=== PATIENT | male | born 1970 | race Caucasian/White ===

== ENCOUNTER 2018-03-15 09:29 | Emergency (ER) | payer MEDICAID ==
[~2018-03-15] VITALS: Ht 177.8 cm; Wt 105.0 kg
--- NOTE | 2018-03-15 09:53 | NUR ---
PT. WAS ASKED TO PUT ON A GOWN TO BE EXAMINED. PT. IS REFUSING.
--- NOTE | 2018-03-15 10:20 | NUR ---
PT TO ROOM 14 W/ C/O DIFFUSE ABD PAIN THROUGHOUT AND C/O N/V/D STARTED 2 DAYS AGO. DENIES GI HX/SURGERIES. PT AWARE OF NEED FOR UA. STATES HE CANNOT PROVIDE SAMPLE AT THIS TIME. PT RESTING ON GURNEY. NADN. WARM BLANKET PROVIDED.
[2018-03-15] MEDS ORDERED: MORPHINE SULFATE 4 MG/ML, 1ML ONE (10:24)
[2018-03-15] MEDS ORDERED: ONDANSETRON 2MG/ML, 2ML ONE (10:24)
[2018-03-15] MEDS ORDERED: FAMOTIDINE 20 MG/2 ML ONE (10:25)
[2018-03-15] MEDS ORDERED: SODIUM CHLORIDE FLUSH 10ML SYR IVF ONE (10:30)
[2018-03-15] MEDS ORDERED: FAMOTIDINE 20 MG/2 ML IVP ONE (10:30)
[2018-03-15] MEDS ORDERED: SODIUM CHLORIDE 0.9% 1,000ML IVBOLUS ONE (10:30)
[2018-03-15] MEDS ORDERED: ONDANSETRON 2MG/ML, 2ML IVPush ONE (10:30)
[2018-03-15] MEDS ORDERED: MORPHINE SULFATE 4 MG/ML, 1ML IVPush PRN (10:30)
--- NOTE | 2018-03-15 10:35 | NUR ---
PT REFUSING ALL IV MEDICATIONS AND IVF. ERP NOTIFIED. PER ERP OKAY TO GIVE PO WATER.
[2018-03-15 10:37] LABS: BASOPHILS # (AUTO) 0.09 x10^3/uL (0-0.1); BASOPHILS % (AUTO) 1 % (0-1); EOSINOPHILS # (AUTO) 0.11 x10^3/uL (0-0.4); EOSINOPHILS % (AUTO) 2 % (1-7); LYMPHOCYTES # (AUTO) 1.65 x10^3/uL (1-3.4); LYMPHOCYTES % (AUTO) 23 % (22-44); MD NO; MEAN CORPUSCULAR HEMOGLOBIN 29.2 pg (27.5-34.5); MEAN CORPUSCULAR HGB CONC 34.4 g/dL (33.2-36.2); MEAN CORPUSCULAR VOLUME 84.8 fL (81-97); MEAN PLATELET VOLUME 7.8 fL (7.4-10.4); MONOCYTES % (AUTO) 8 % (2-9); NEUTROPHILS # (AUTO) 4.77 x10^3/uL (1.8-6.8); NEUTROPHILS % (AUTO) 66 % (42-75); PLATELET COUNT 358 x10^3/uL (130-400); RED BLOOD COUNT 5.71 x10^6/uL (4.38-5.82); RED CELL DISTRIBUTION WIDTH 13.4 % (9.4-14.8)
[2018-03-15 10:39] VITALS: BP 125/88
[2018-03-15 10:45] LABS: ALANINE AMINOTRANSFERASE 23 U/L (12-78); ALBUMIN 3.8 g/dL (3.4-5.0); ANION GAP 8 mmol/L (5-15); CALCIUM 9.4 mg/dL (8.5-10.1); CHLORIDE 109 mmol/L (98-107)
[2018-03-15 10:47] LABS: ALKALINE PHOSPHATASE 119 U/L (45-117); BILIRUBIN,TOTAL 0.6 mg/dL (0.2-1.0); TOTAL PROTEIN 7.4 g/dL (6.4-8.2)
--- NOTE | 2018-03-15 11:02 | NUR ---
PT DENIES ALL INTERVENTIONS STATING "IF THEY'RE NOT NATURAL DON'T GIVE THEM TO ME". PT REFUSING ANY IMAGING/MEDS. PT STATES HE JUST WANTS WATER AND FOOD. ERP NOTIFIED.
[2018-03-15 11:12] LABS: ACETONE, SERUM Negative (Negative)
== END 2018-03-15 11:58 | disposition left against medical advice (07) ==
LOC: ED 11:51
DX: R10.84 Generalized abdominal pain (principal); R11.2 Nausea with vomiting, unspecified; R19.7 Diarrhea, unspecified; F17.200 Nicotine dependence, unspecified, uncomplicated
CPT/HCPCS: 36415; 80053; 82010; 82800; 83690; 85025; 99283

== ENCOUNTER 2018-09-05 12:36 | Emergency (ER) | payer MEDICAID, OTHER ==
[~2018-09-05] VITALS: Ht 181.6 cm; Wt 104.5 kg
[2018-09-05] MEDS ORDERED: OXYcodone/APAP 5/325MG TABLET ONE ×2 (13:12→14:25)
[2018-09-05] MEDS ORDERED: METHOCARBAMOL 750 MG TABLET ONE (13:12)
[2018-09-05] MEDS ORDERED: KETOROLAC 30 MG/1 ML ONE (13:12)
[2018-09-05] MEDS ORDERED: OXYcodone/APAP 5/325MG TABLET PO ONE ×2 (13:30→14:30)
[2018-09-05] MEDS ORDERED: METHOCARBAMOL 750 MG TABLET PO ONE (13:30)
[2018-09-05] MEDS ORDERED: KETOROLAC 30 MG/1 ML IM ONE (13:30)
[2018-09-05 14:40] VITALS: BP 116/73
--- NOTE | 2018-09-05 14:40 | NUR ---
pt resting in [facility], awaiting [facility] records
--- NOTE | 2018-09-05 15:15 | NUR ---
PT HERE FOR LOWER BACK PAIN.
--- NOTE | 2018-09-05 17:53 | NUR ---
SPOKE WITH MD JAFFE ON REGARDS OF DISPOSITION OF PT. PT GETTING ANXIOUS TO LEAVE.
--- NOTE | 2018-09-05 18:08 | NUR ---
Patient/Caregiver given discharge instructions and they have confirmed that they understand the instructions. Patient ambulatory with steady gait.
== END 2018-09-05 18:12 | disposition home or self-care (01) ==
LOC: ED 13:49
DX: S39.012A Strain of muscle, fascia and tendon of lower back, initial encounter (principal); X58.XXXA Exposure to other specified factors, initial encounter; Y93.89 Activity, other specified; Y92.89 Other specified places as the place of occurrence of the external cause; Y99.8 Other external cause status
CPT/HCPCS: 96372; 99284; J1885

== ENCOUNTER 2018-09-13 14:25 | Emergency (ER) | payer OTHER ==
[~2018-09-13] VITALS: Ht 180.3 cm; Wt 103.6 kg
--- NOTE | 2018-09-13 15:20 | NUR ---
PT REPORTS CONTINUED BACK PAIN. SEEN IN ED FOR SAME, INJURY OCCURED 08/14/18. PT REPORTS R FOOT "FALLS ASLEEP." AMBULATORY MOTOR/STRENGTH 4/5 EQUALLY TO RLE VS. LLE SENSATION 5/5 EQAULLY TO RLE VS. LLE
--- NOTE | 2018-09-13 16:10 | NUR ---
NO CHANGE IN NEURO EXAM. PRIOVIDER TO DISCHARGE
[2018-09-13 16:15] VITALS: BP 158/71
[2018-09-13] MEDS ORDERED: HYDROcodone/APAP 5/325 TABLET ONE (16:58)
[2018-09-13] MEDS ORDERED: HYDROcodone/APAP 5/325 TABLET PO ONE (17:00)
--- NOTE | 2018-09-13 17:04 | NUR ---
MEDICATED PER EMAR FOR DIFFUSE LUMBAR PAIN RATED AT 8/10 PATIENT THEN DISCHARGED AFTER MEDICATION ADMINISTRATION. GAME PRODUCER COMFORTABLE SENDING PATIENT HOME DESPITE RECENT NARCOTIC ADMINISTRATION : -PATIENT NOT NAIVE TO NARCOTICS -IS TAKING THE BUS HOME
== END 2018-09-13 17:23 | disposition home or self-care (01) ==
LOC: ED 16:48
DX: M54.5 Low back pain (principal); G89.29 Other chronic pain
CPT/HCPCS: 99282

== ENCOUNTER 2019-01-14 04:52 | Emergency (ER) | payer MEDICAID, OTHER ==
[~2019-01-14] VITALS: Ht 180.3 cm; Wt 113.6 kg
--- NOTE | 2019-01-14 05:06 | NUR ---
WARM BLANKET AND REMOVE GIVEN TO THE PT.
[2019-01-14] MEDS ORDERED: ASPIRIN 81 MG TABLET CHEW PO ONE (05:30)
--- NOTE | 2019-01-14 06:01 | NUR ---
PT PROVIDED SAMUEL AGUIRREE FOR STOOL SAMPLE. PT STATES HE HAS LOOSE STOOLS ONCE EVERY OTHER DAY. LAST BM WAS YESTERDAY. PT STATES HE IS NOT ABLE TO PROVIDE STOOL SAMPLE AT THIS TIME.
[2019-01-14 06:02] LABS: BASOPHILS # (AUTO) 0.02 x10^3/uL (0-0.1); BASOPHILS % (AUTO) 0 % (0-1); EOSINOPHILS # (AUTO) 0.17 x10^3/uL (0-0.4); EOSINOPHILS % (AUTO) 3 % (1-7); LYMPHOCYTES # (AUTO) 1.62 x10^3/uL (1-3.4); LYMPHOCYTES % (AUTO) 27 % (22-44); MD NO; MEAN CORPUSCULAR HEMOGLOBIN 29.2 pg (27.5-34.5); MEAN CORPUSCULAR VOLUME 85.7 fL (81-97); MEAN PLATELET VOLUME 8.2 fL (7.4-10.4); MONOCYTES # (AUTO) 0.52 x10^3/uL (0.2-0.8); MONOCYTES % (AUTO) 9 % (2-9); NEUTROPHILS # (AUTO) 3.66 x10^3/uL (1.8-6.8); NEUTROPHILS % (AUTO) 61 % (42-75); PLATELET COUNT 272 x10^3/uL (130-400); RED BLOOD COUNT 5.18 x10^6/uL (4.38-5.82); RED CELL DISTRIBUTION WIDTH 13.5 % (9.4-14.8)
[2019-01-14 06:12] LABS: ALBUMIN 3.5 g/dL (3.4-5.0); ANION GAP 5 mmol/L (5-15); CALCIUM 8.5 mg/dL (8.5-10.1); CHLORIDE 111 mmol/L (98-107); CREATININE 1.23 mg/dL (0.7-1.3)
[2019-01-14 06:15] LABS: TROPONIN I < 0.015 ng/mL (0.000-0.045)
--- NOTE | 2019-01-14 06:53 | NUR ---
report to tiburcio mahoney
--- NOTE | 2019-01-14 06:56 | NUR ---
RECEIVED BEDSIDE REPORT FROM SALVATORE PEREZ. PT SLEEPING ON [facility]. [place]. VSS. AWAITING RAD RESULT, THEN RECHECK.
--- NOTE | 2019-01-14 08:17 | NUR ---
PT STATES HE STILL HADN'T HAD A BM FOR STOOL SAMPLE. PER REPROT PT HAS BM EVERY OTHER DAY AND HE HAD ONE YESTERDAY (01/13/2019)
--- NOTE | 2019-01-14 08:35 | NUR ---
PT EDUCATED REGARDING EVALUATION AND FINDINGS. PT ALSO EDUCATED TO FOLLOW UP. PT CURSING AT THIS RN. PT READY FOR D/C. PT NOT LEAVING ROOM AT THIS TIME.
--- NOTE | 2019-01-14 08:38 | NUR ---
Patient/Caregiver given discharge instructions and they have confirmed that they understand the instructions. Patient ambulatory with steady gait. PT REFUSED TO TAKE HIS D/C PAPERWORK. PT LEFT WITH ALL PERSONAL BELONGINGS. PIV D/C WITH TIP INTACT
[2019-01-14 08:39] VITALS: BP 118/64
== END 2019-01-14 08:41 | disposition home or self-care (01) ==
LOC: ED 05:12
DX: R07.89 Other chest pain (principal); R19.7 Diarrhea, unspecified
CPT/HCPCS: 36415; 71045; 80048; 82040; 84484; 85025; 93005; 99284

== ENCOUNTER 2019-05-31 10:15 | Emergency (ER) | payer MEDICAID ==
[~2019-05-31] VITALS: Ht 180.3 cm; Wt 119.3 kg
[2019-05-31 10:20] VITALS: BP 135/72
[2019-05-31] MEDS ORDERED: NEOSPORIN OINT. PKT 1 PACKET ONE (10:57)
--- NOTE | 2019-05-31 11:01 | NUR ---
TRIPLE ANTIBIOTIC OINTMENT APPLIED TO SMALL LESION BEHIND LEFT EAR. BANDAID APPLIED.
--- NOTE | 2019-05-31 11:07 | NUR ---
Patient given discharge instructions and they have confirmed that they understand the instructions. Patient ambulatory with steady gait.
== END 2019-05-31 11:08 | disposition home or self-care (01) ==
LOC: ED 10:23
DX: H60.12 Cellulitis of left external ear (principal)
CPT/HCPCS: 99283

== ENCOUNTER 2019-06-09 11:30 | Emergency (ER) | payer MEDICAID ==
[~2019-06-09] VITALS: Ht 180.3 cm; Wt 117.1 kg
[2019-06-09 11:36] VITALS: BP 130/86
[2019-06-09] MEDS ORDERED: DIPH,PERTUSS(ACELL),TET VAC/PF 0.5 ML IM-VACC ONE ×2 (11:52→12:00)
[2019-06-09] MEDS ORDERED: NEOSPORIN OINT. PKT 1 PACKET ONE (11:55)
[2019-06-09] MEDS ORDERED: RABIES VACCINE /PF 2.5 UNITS IM-VACC ONE (12:00)
[2019-06-09] MEDS ORDERED: RABIES IMMUNE GLOBULIN/PF 150 UNITS/ML, 2ML IM ONE (12:00)
[2019-06-09] MEDS ORDERED: LIDOCAINE-MPF 1%, 5ML ONE ×2 (12:17)
[2019-06-09] MEDS ORDERED: LIDOCAINE-MPF 1%, 5ML INFIL ONE (12:30)
--- NOTE | 2019-06-09 13:32 | NUR ---
TASK RN: FIRST CONTACT WITH PT Patient/Caregiver given discharge instructions and they have confirmed that they understand the instructions. Patient ambulatory with steady gait. PT LEFT WITH ALL PERSONAL BELONGINGS.
== END 2019-06-09 13:34 | disposition home or self-care (01) ==
LOC: ED 11:43
DX: S60.372A Other superficial bite of left thumb, initial encounter (principal); W53.21XA Bitten by squirrel, initial encounter; Y93.89 Activity, other specified; Y92.830 Public park as the place of occurrence of the external cause; Y99.8 Other external cause status
CPT/HCPCS: 90375; 90471; 90675; 96372; 99283; 99284

== ENCOUNTER 2019-06-12 09:12 | Emergency (ER) | payer MEDICAID ==
[~2019-06-12] VITALS: Ht 180.3 cm; Wt 118.0 kg
[2019-06-12 09:19] VITALS: BP 143/72
--- NOTE | 2019-06-12 10:24 | NUR ---
Provided pt medication per EMAR. NADN. No other needs expressed. Pt appreciative.
--- NOTE | 2019-06-12 10:25 | NUR ---
Patient given discharge instructions and they have confirmed that they understand the instructions. Patient ambulatory with steady gait. Pt left with d/c paperwork and all personal belongings.
[2019-06-12] MEDS ORDERED: RABIES VACCINE /PF 2.5 UNITS IM-VACC ONE (11:00)
== END 2019-06-12 10:26 | disposition home or self-care (01) ==
LOC: ED 10:01
DX: S60.372A Other superficial bite of left thumb, initial encounter (principal); Z23 Encounter for immunization; W53.21XA Bitten by squirrel, initial encounter; Y93.89 Activity, other specified; Y92.89 Other specified places as the place of occurrence of the external cause; Y99.8 Other external cause status
CPT/HCPCS: 90471; 90675; 99281

== ENCOUNTER 2019-06-16 12:01 | Emergency (ER) | payer MEDICAID ==
[~2019-06-16] VITALS: Ht 180.3 cm; Wt 117.8 kg
[2019-06-16 12:03] VITALS: BP 123/81
--- NOTE | 2019-06-16 12:27 | NUR ---
Pt here for 3rd rabies shot, pt was bit by squirrel. Pts wound is closed and heal.
[2019-06-16] MEDS ORDERED: RABIES VACCINE /PF 2.5 UNITS IM-VACC ONE (12:30)
--- NOTE | 2019-06-16 12:32 | NUR ---
Pt med requested from pharmacy
--- NOTE | 2019-06-16 12:49 | NUR ---
Pt medicated per emar, Patient/Caregiver given discharge instructions and they have confirmed that they understand the instructions. Patient ambulatory with steady gait.
== END 2019-06-16 12:51 | disposition home or self-care (01) ==
LOC: ED 12:40
DX: Z23 Encounter for immunization (principal); W53.21XD Bitten by squirrel, subsequent encounter
CPT/HCPCS: 90471; 90675; 99281

== ENCOUNTER 2019-06-22 08:29 | Emergency (ER) | payer MEDICAID ==
[~2019-06-22] VITALS: Ht 180.3 cm; Wt 115.8 kg
--- NOTE | 2019-06-22 08:53 | NUR ---
PT BROUGHT BACK FROM TRIAGE FOR RABIES VACCINE FOLLOW UP
[2019-06-22] MEDS ORDERED: RABIES VACCINE /PF 2.5 UNITS IM-VACC ONE (09:00)
[2019-06-22 09:15] VITALS: BP 112/72
--- NOTE | 2019-06-22 09:18 | NUR ---
DISCHARGE INSTRUCTIONS REVIEWED
== END 2019-06-22 09:23 | disposition home or self-care (01) ==
LOC: ED 08:45
DX: S61.032D Puncture wound without foreign body of left thumb without damage to nail, subsequent encounter (principal); Z23 Encounter for immunization; X58.XXXD Exposure to other specified factors, subsequent encounter
CPT/HCPCS: 90471; 90675; 99281

== ENCOUNTER 2020-08-02 15:46 | Emergency (ER) | payer MEDICAID ==
[~2020-08-02] VITALS: Ht 180.3 cm; Wt 134.3 kg
[2020-08-02 15:49] VITALS: BP 155/94
[2020-08-02] MEDS ORDERED: ACETAMINOPHEN 500 MG TABLET ONE (16:10)
[2020-08-02] MEDS ORDERED: KETOROLAC 30 MG/1 ML ONE (16:10)
--- NOTE | 2020-08-02 16:17 | NUR ---
MEDS ADMIN PER MAR
--- NOTE | 2020-08-02 16:28 | NUR ---
ALL RESULTS ARE BACK AT THIS TIME. CHART UP FOR RECHECK.
[2020-08-02] MEDS ORDERED: ACETAMINOPHEN 500 MG TABLET PO ONE (16:30)
[2020-08-02] MEDS ORDERED: KETOROLAC 30 MG/1 ML IM ONE (16:30)
== END 2020-08-02 17:48 | disposition home or self-care (01) ==
LOC: ED 16:50
DX: S62.115A Nondisplaced fracture of triquetrum [cuneiform] bone, left wrist, initial encounter for closed fracture (principal); I10 Essential (primary) hypertension; W18.30XA Fall on same level, unspecified, initial encounter; Y93.89 Activity, other specified; Y92.410 Unspecified street and highway as the place of occurrence of the external cause; Y99.8 Other external cause status
CPT/HCPCS: 29125; 73110; 96372; 99283; J1885

== ENCOUNTER 2020-10-01 09:39 | Emergency (ER) | payer MEDICAID ==
[~2020-10-01] VITALS: Ht 180.3 cm; Wt 137.0 kg
--- NOTE | 2020-10-01 10:03 | NUR ---
PATIENT WALKED BACK FROM TRIAGE WITH CHIEF C/O DIZZINESS, GENERALIZED BODY ACHES, AND SOB X1-2 DAYS. PATIENT BREATHING HEAVILY, CONNECTED TO MONITOR, VSS, CALL LIGHT WITHIN REACH.
[2020-10-01 11:18] LABS: BASOPHILS % (AUTO) 1 % (0-1); EOSINOPHILS % (AUTO) 2 % (1-7); LYMPHOCYTES % (AUTO) 10 % (22-44); MEAN CORPUSCULAR HEMOGLOBIN 29.4 pg (27.5-34.5); MEAN CORPUSCULAR HGB CONC 34.3 g/dL (33.2-36.2); MEAN PLATELET VOLUME 8.3 fL (7.4-10.4); MONOCYTES % (AUTO) 10 % (2-9); NEUTROPHILS % (AUTO) 79 % (42-75); PLATELET COUNT 228 x10^3/uL (130-400); RED BLOOD COUNT 5.15 x10^6/uL (4.38-5.82); RED CELL DISTRIBUTION WIDTH 14.1 % (9.4-14.8)
--- NOTE | 2020-10-01 11:24 | NUR ---
PATIENT RESTING IN GURNEY WITH EYES CLOSED, RESP EVEN AND UNLABORED, CONNECTED TO MONITOR, VSS, CALL LIGHT WITHIN REACH. WAITING FOR CHEST X-RAY.
[2020-10-01 11:27] LABS: ALANINE AMINOTRANSFERASE 69 U/L (12-78); ALBUMIN 3.4 g/dL (3.4-5.0); ANION GAP 6 mmol/L (5-15); CALCIUM 8.6 mg/dL (8.5-10.1); CHLORIDE 106 mmol/L (98-107); CREATININE 1.14 mg/dL (0.7-1.3)
[2020-10-01 11:29] LABS: ALKALINE PHOSPHATASE 96 U/L (45-117); BILIRUBIN,TOTAL 0.6 mg/dL (0.2-1.0); TOTAL PROTEIN 6.9 g/dL (6.4-8.2)
--- NOTE | 2020-10-01 12:35 | NUR ---
PATIENT RESTING IN GURNEY WITH EYES CLOSED, RESP EVEN AND UNLABORED, CONNECTED TO MONITOR, VSS, CALL LIGHT WITHIN REACH. PATIENT UP FOR RECHECK.
[2020-10-01] MEDS ORDERED: KETOROLAC 30 MG/1 ML ONE (12:54)
[2020-10-01] MEDS ORDERED: KETOROLAC 30 MG/1 ML IM ONE (13:00)
--- NOTE | 2020-10-01 13:42 | NUR ---
PT RESTING ON GURNEY. NADN. ARRIAZA.
[2020-10-01 14:22] VITALS: BP 136/84
--- NOTE | 2020-10-01 14:25 | NUR ---
Patient given discharge instructions and prescription and they have confirmed that they understand the instructions. Patient ambulatory with steady gait. NAD, all questions answered appropriately, denies additional needs at this time. No personal belongings left in room after discharge.
--- NOTE | 2020-10-04 15:25 | NUR ---
THROUGHPUT RN::ABLE TO REACH PT AT LISTED PHONE NUMBER. RESULTS GIVEN. ALL QUESTIONS ANSWERED.
== END 2020-10-01 14:26 | disposition home or self-care (01) ==
LOC: ED 11:09
DX: U07.1 COVID-19 (principal); J40 Bronchitis, not specified as acute or chronic; B34.9 Viral infection, unspecified; R50.9 Fever, unspecified
CPT/HCPCS: 36415; 71045; 80053; 85025; 96372; 99285; J1885; U0003; U0005

== ENCOUNTER 2020-10-01 19:03 | Emergency (ER) | payer MEDICAID ==
[~2020-10-01] VITALS: Ht 180.3 cm; Wt 137.3 kg
[2020-10-01 20:35] VITALS: BP 145/95
== END 2020-10-01 21:02 | disposition home or self-care (01) ==
LOC: ED 19:06
DX: R06.00 Dyspnea, unspecified (principal); R50.9 Fever, unspecified; R05 Cough; R94.31 Abnormal electrocardiogram [ECG] [EKG]; I10 Essential (primary) hypertension
CPT/HCPCS: 93005; 99283

== ENCOUNTER 2020-10-14 16:30 | Inpatient (IN) | payer MEDICAID ==
[~2020-10-14] VITALS: Ht 180.3 cm; Wt 133.1 kg
[2020-10-14] MEDS ORDERED: DIPHENHYDRAMINE 50 MG/ML, 1ML IVPush ONE (17:30)
[2020-10-14] MEDS ORDERED: SODIUM CHLORIDE FLUSH 10ML SYR IVF ONE ×2 (17:30)
[2020-10-14] MEDS ORDERED: SODIUM CHLORIDE 0.9% 1,000ML IVBOLUS ONE (17:30)
[2020-10-14] MEDS ORDERED: ALBUTEROL/IPRATROPIUM 2.5MG/0.5MG, 3 ML NPPB ONE (17:30)
[2020-10-14] MEDS ORDERED: KETOROLAC 30 MG/1 ML IVPush ONE (17:30)
[2020-10-14] MEDS ORDERED: METOCLOPRAMIDE 5 MG/ML, 2ML IVPush ONE (17:30)
[2020-10-14] MEDS ORDERED: DIPHENHYDRAMINE 50 MG/ML, 1ML ONE (17:33)
[2020-10-14] MEDS ORDERED: METOCLOPRAMIDE 5 MG/ML, 2ML ONE (17:33)
[2020-10-14] MEDS ORDERED: KETOROLAC 30 MG/1 ML ONE (17:34)
--- NOTE | 2020-10-14 17:49 | NUR ---
Pt connected to all monitors, VSS. Requested to take off mask r/t SOB, sating 94%, educated not to do so while staff are in the room, pt agreeable.
[2020-10-14] MEDS ORDERED: ALBUTEROL/IPRATROPIUM 2.5MG/0.5MG, 3 ML ONE (17:57)
[2020-10-14] MEDS ORDERED: ACETAMINOPHEN 500 MG TABLET PO ONE (18:00)
[2020-10-14 18:18] LABS: BASOPHILS % (AUTO) 0 % (0-1); EOSINOPHILS % (AUTO) 1 % (1-7); LYMPHOCYTES % (AUTO) 13 % (22-44); MEAN CORPUSCULAR HEMOGLOBIN 29.9 pg (27.5-34.5); MEAN CORPUSCULAR HGB CONC 34.7 g/dL (33.2-36.2); MEAN PLATELET VOLUME 8.1 fL (7.4-10.4); MONOCYTES % (AUTO) 17 % (2-9); NEUTROPHILS % (AUTO) 69 % (42-75); PLATELET COUNT 244 x10^3/uL (130-400); RED CELL DISTRIBUTION WIDTH 14.6 % (9.4-14.8)
[2020-10-14 18:22] LABS: ALANINE AMINOTRANSFERASE 63 U/L (12-78); ALBUMIN 3.4 g/dL (3.4-5.0); ANION GAP 8 mmol/L (5-15); CALCIUM 9.1 mg/dL (8.5-10.1); CHLORIDE 106 mmol/L (98-107); CREATININE 1.22 mg/dL (0.7-1.3)
[2020-10-14 18:25] LABS: ALKALINE PHOSPHATASE 99 U/L (45-117); BILIRUBIN,TOTAL 0.3 mg/dL (0.2-1.0); TOTAL PROTEIN 7.3 g/dL (6.4-8.2)
[2020-10-14] MEDS ORDERED: ACETAMINOPHEN 500 MG TABLET ONE (18:26)
--- NOTE | 2020-10-14 18:46 | NUR ---
Bedside report to SALVATORE Fernandes. Pt sleeping, visible chest rise and fall.
[2020-10-14] MEDS ORDERED: DEXAMETHASONE 4 MG TABLET PO ONE (20:00)
[2020-10-14] MEDS ORDERED: DEXAMETHASONE 4 MG TABLET ONE (20:20)
[2020-10-14] MEDS ORDERED: PHARMACY MAY ADJ FOR RENAL FX MC PRN (20:30)
[2020-10-14] MEDS ORDERED: KETOROLAC 30 MG/1 ML IV PRN (20:30)
[2020-10-14] MEDS ORDERED: LABETALOL 5MG/ML, 20ML IVPush PRN (20:30)
[2020-10-14] MEDS ORDERED: ACETAMINOPHEN 325 MG TABLET PO PRN (20:30)
[2020-10-14] MEDS ORDERED: ONDANSETRON 2MG/ML, 2ML IVPush PRN (20:30)
[2020-10-14] MEDS ORDERED: MELATONIN 5 MG TABLET PO PRN (20:30)
[2020-10-14] MEDS ORDERED: morphine SULFATE 10 MG/ML, 1ML IVPush PRN (20:30)
[2020-10-14] MEDS ORDERED: POLYETHYLENE GLYCOL 17 GM PACKET PO PRN (20:30)
--- NOTE | 2020-10-14 20:32 | NUR ---
attempted report at this time. rn unable to take report. will attempt again shortly
[2020-10-14 21:52] VITALS: BP 155/80
[2020-10-14] MEDS: ASCORBIC ACID 500 MG TABLET PO SCH (22:15)
[2020-10-14] MEDS: FAMOTIDINE 20 MG TABLET PO SCH (22:15)
[2020-10-14] MEDS: ENOXAPARIN 30 MG/0.3 ML SQ SCH (22:15)
[2020-10-14] MEDS: DEXAMETHASONE 4 MG/ML, 1ML IVPush SCH (22:15)
[2020-10-14] MEDS ORDERED: ALBUTEROL HFA 90 MCG/SPRAY INH PRN (23:00)
[2020-10-15 01:36] VITALS: BP 117/72
[2020-10-15] MEDS: DEXAMETHASONE 4 MG/ML, 1ML IVPush SCH ×2 (04:27→09:38)
[2020-10-15 05:25] LABS: BASOPHILS % (AUTO) 1 % (0-1); EOSINOPHILS % (AUTO) 0 % (1-7); LYMPHOCYTES % (AUTO) 12 % (22-44); MEAN CORPUSCULAR HEMOGLOBIN 29.7 pg (27.5-34.5); MEAN CORPUSCULAR HGB CONC 34.6 g/dL (33.2-36.2); MEAN PLATELET VOLUME 8.5 fL (7.4-10.4); MONOCYTES % (AUTO) 4 % (2-9); NEUTROPHILS % (AUTO) 84 % (42-75); PLATELET COUNT 248 x10^3/uL (130-400); RED BLOOD COUNT 5.58 x10^6/uL (4.38-5.82); RED CELL DISTRIBUTION WIDTH 14.5 % (9.4-14.8)
[2020-10-15 05:41] LABS: CHLORIDE 108 mmol/L (98-107)
[2020-10-15 05:49] LABS: ANION GAP 8 mmol/L (5-15); CALCIUM 9.3 mg/dL (8.5-10.1); CREATININE 1.06 mg/dL (0.7-1.3)
[2020-10-15 08:04] VITALS: BP 138/97
[2020-10-15] MEDS ORDERED: ZINC SULFATE 220 MG CAPSULE PO SCH (09:00)
[2020-10-15] MEDS: FAMOTIDINE 20 MG TABLET PO SCH (09:38)
[2020-10-15] MEDS: ASCORBIC ACID 500 MG TABLET PO SCH (09:38)
[2020-10-15] MEDS: ENOXAPARIN 30 MG/0.3 ML SQ SCH (09:38)
[2020-10-15] MEDS ORDERED: ASCO500T9 PO (11:09)
[2020-10-15] MEDS ORDERED: CHOL250C2 PO (11:09)
[2020-10-15] MEDS ORDERED: MELA5TAB14 PO (11:09)
[2020-10-15] MEDS ORDERED: ZINC220C8 PO (11:09)
[2020-10-15] MEDS ORDERED: PRED20TA PO (11:11)
[2020-10-15] MEDS ORDERED: FLUT1AER INH (11:11)
[2020-10-15 14:26] VITALS: BP 158/102
== END 2020-10-15 15:27 | disposition home or self-care (01) | DRG 177 ==
LOC: ED 21:37 → EDIP 21:40 → 3N 21:43
PROVIDERS: ADMIT Internal Medicine; ATTEND Family Medicine
DX: U07.1 COVID-19 (principal); J96.01 Acute respiratory failure with hypoxia; J12.82 Pneumonia due to coronavirus disease 2019; Z68.41 Body mass index [BMI] 40.0-44.9, adult; E66.01 Morbid (severe) obesity due to excess calories; I10 Essential (primary) hypertension; R42 Dizziness and giddiness
CPT/HCPCS: 36415; 71045; 80048; 80053; 83605; 83735; 84145; 85025; 87040; 93005; 96361; 96374; 96375; 99285; G0378; J1100; J1650; J1885; J1200; J2765; J7030

== ENCOUNTER 2020-10-20 07:33 | Inpatient (IN) | payer MEDICAID ==
[~2020-10-20] VITALS: Ht 180.3 cm; Wt 129.2 kg
[~2020-10-20 07:33] MED LIST: ASCO500T9 PO; CHOL250C2 PO; FLUT1AER INH; MELA5TAB14 PO; PRED20TA PO; ZINC220C8 PO
--- NOTE | 2020-10-20 08:02 | NUR ---
PT AMBULATES WELL INDEPENDENTLY TO BATHROOM.
[2020-10-20] MEDS ORDERED: KETOROLAC 30 MG/1 ML ONE (08:19)
[2020-10-20] MEDS ORDERED: ONDANSETRON 2MG/ML, 2ML ONE (08:20)
[2020-10-20] MEDS ORDERED: SODIUM CHLORIDE 0.9% 1,000ML IVBOLUS ONE (08:30)
[2020-10-20] MEDS ORDERED: ONDANSETRON 2MG/ML, 2ML IVPush ONE (08:30)
[2020-10-20] MEDS ORDERED: KETOROLAC 30 MG/1 ML IVPush ONE (08:30)
[2020-10-20 08:33] LABS: BASOPHILS % (AUTO) 0 % (0-1); EOSINOPHILS % (AUTO) 0 % (1-7); LYMPHOCYTES % (AUTO) 21 % (22-44); MEAN CORPUSCULAR HEMOGLOBIN 29.1 pg (27.5-34.5); MEAN CORPUSCULAR HGB CONC 34.1 g/dL (33.2-36.2); MEAN PLATELET VOLUME 8.4 fL (7.4-10.4); MONOCYTES % (AUTO) 14 % (2-9); NEUTROPHILS % (AUTO) 64 % (42-75); PLATELET COUNT 186 x10^3/uL (130-400); RED BLOOD COUNT 5.78 x10^6/uL (4.38-5.82); RED CELL DISTRIBUTION WIDTH 14.4 % (9.4-14.8)
--- NOTE | 2020-10-20 08:34 | NUR ---
IV START, LABS DRAWN. AWAITING CXR. IVF INFUSING PER EMAR. BLANKET APPLIED, HOB TO LEVEL OF COMFORT FOR PT.
[2020-10-20 08:44] LABS: ALANINE AMINOTRANSFERASE 56 U/L (12-78); ALBUMIN 3.5 g/dL (3.4-5.0); ANION GAP 6 mmol/L (5-15); CALCIUM 8.6 mg/dL (8.5-10.1); CHLORIDE 101 mmol/L (98-107); CREATININE 1.33 mg/dL (0.7-1.3)
[2020-10-20 08:47] LABS: ALKALINE PHOSPHATASE 103 U/L (45-117); BILIRUBIN,TOTAL 0.4 mg/dL (0.2-1.0); TOTAL PROTEIN 7.6 g/dL (6.4-8.2)
[2020-10-20] MEDS ORDERED: CEFTRIAXONE 1,000 MG in DEXTROSE 5% 50 ML IVPB ONE (10:00)
[2020-10-20] MEDS ORDERED: SODIUM CHLORIDE FLUSH 10ML SYR IVF PRN (10:00)
[2020-10-20 10:14] LABS: D-DIMER (DIC) 0.77 ug/mlFEU (0.00-0.52); PROTIME 10.3 Seconds (9.6-11.5)
[2020-10-20 10:25] LABS: C-REACTIVE PROTEIN, QUANT 1.4 mg/dL (0.02-0.49)
[2020-10-20] MEDS ORDERED: AZITHROMYCIN 500 MG in SODIUM CHLORIDE 0.9% 250 ML IV ONE (11:00)
--- NOTE | 2020-10-20 11:02 | NUR ---
PT ASLEEP. NAD NOTED AT THIS TIME. RESPIRATIONS EVEN AND UNLABORED ON NC. PT AWAKENS EASILY. DENIES PAIN. SIDE RAILS UP, CALL LIGHT IN REACH.
--- NOTE | 2020-10-20 11:26 | NUR ---
FIRST ATTEMPT TO CALL REPORT.
[2020-10-20 12:07] VITALS: BP 121/84
[2020-10-20] MEDS ORDERED: ONDANSETRON ODT 4 MG PO PRN (13:30)
[2020-10-20] MEDS ORDERED: POLYETHYLENE GLYCOL 17 GM PACKET PO PRN (13:30)
[2020-10-20] MEDS ORDERED: BISACODYL 10 MG SUPP PR PRN (13:30)
[2020-10-20] MEDS ORDERED: hydrALAzine 20 MG/ML, 1ML IVPush PRN (13:30)
[2020-10-20] MEDS ORDERED: DOCUSATE 100 MG CAPSULE PO PRN (13:30)
[2020-10-20] MEDS ORDERED: PROMETHAZINE 25 MG/ML, 1ML IM PRN (13:30)
[2020-10-20] MEDS: ENOXAPARIN 40 MG/0.4 ML SQ SCH (13:40)
[2020-10-20] MEDS: ACETAMINOPHEN 325 MG TABLET PO PRN ×2 (13:40→21:08)
[2020-10-20] MEDS: OXYcodone IR 5MG TABLET PO PRN (13:40)
[2020-10-20] MEDS: DEXAMETHASONE 4 MG/ML, 1ML IVPush SCH (13:41)
[2020-10-20 19:32] VITALS: BP 112/79
[2020-10-20] MEDS: ASCORBIC ACID 500 MG TABLET PO SCH (20:39)
[2020-10-21 02:07] VITALS: BP 135/86
[2020-10-21 06:15] LABS: BASOPHILS % (AUTO) 0 % (0-1); EOSINOPHILS % (AUTO) 0 % (1-7); LYMPHOCYTES % (AUTO) 14 % (22-44); MEAN CORPUSCULAR HEMOGLOBIN 29.2 pg (27.5-34.5); MEAN CORPUSCULAR HGB CONC 34.3 g/dL (33.2-36.2); MEAN PLATELET VOLUME 8.4 fL (7.4-10.4); MONOCYTES % (AUTO) 8 % (2-9); NEUTROPHILS % (AUTO) 78 % (42-75); PLATELET COUNT 175 x10^3/uL (130-400); RED BLOOD COUNT 5.45 x10^6/uL (4.38-5.82); RED CELL DISTRIBUTION WIDTH 14.5 % (9.4-14.8)
[2020-10-21 06:23] LABS: ALBUMIN 2.8 g/dL (3.4-5.0); ANION GAP 7 mmol/L (5-15); CALCIUM 8.3 mg/dL (8.5-10.1); CHLORIDE 106 mmol/L (98-107)
[2020-10-21] MEDS: CEFTRIAXONE 1,000 MG in DEXTROSE 5% 50 ML IVPB SCH (06:24)
[2020-10-21 06:32] LABS: ALANINE AMINOTRANSFERASE 52 U/L (12-78); ALKALINE PHOSPHATASE 98 U/L (45-117); BILIRUBIN,TOTAL 0.2 mg/dL (0.2-1.0); CHOLESTEROL, TOTAL 175 mg/dL (140-239); CREATININE 0.91 mg/dL (0.7-1.3); HDL CHOL % 17 % (26-37); HDL CHOLESTEROL (DIRECT) 29 mg/dL (40-60); LDL CHOLESTEROL,CALCULATED 118 mg/dL (54-169); LDL/HDL RATIO 4.1 (0.5-3.0); TOTAL PROTEIN 6.7 g/dL (6.4-8.2); TRIGLYCERIDES 141 mg/dL (50-200); VLDL CHOLESTEROL 28 mg/dL (0-25)
[2020-10-21] MEDS: AZITHROMYCIN 500 MG in SODIUM CHLORIDE 0.9% 250 ML IV SCH (07:11)
[2020-10-21] MEDS: FLUTICASONE/VILANTEROL 100-25MCG/INH INH SCH (09:01)
[2020-10-21] MEDS: ASCORBIC ACID 500 MG TABLET PO SCH ×2 (09:01→20:22)
[2020-10-21] MEDS: ZINC SULFATE 220 MG CAPSULE PO SCH (09:01)
[2020-10-21] MEDS: DEXAMETHASONE 4 MG/ML, 1ML IVPush SCH (09:02)
[2020-10-21 09:08] VITALS: BP 117/77
[2020-10-21] MEDS: ONDANSETRON 2MG/ML, 2ML IVPush PRN ×2 (09:10→18:22)
[2020-10-21 12:15] VITALS: BP 114/73
[2020-10-21] MEDS: ACETAMINOPHEN 325 MG TABLET PO PRN ×2 (12:36→20:41)
[2020-10-21] MEDS: ENOXAPARIN 40 MG/0.4 ML SQ SCH ×2 (13:02→20:22)
[2020-10-21 20:25] VITALS: BP 132/87
[2020-10-22 02:55] VITALS: BP 128/77
[2020-10-22] MEDS: ACETAMINOPHEN 325 MG TABLET PO PRN ×2 (03:01→08:56)
[2020-10-22] MEDS: CEFTRIAXONE 1,000 MG in DEXTROSE 5% 50 ML IVPB SCH (06:29)
[2020-10-22] MEDS: AZITHROMYCIN 500 MG in SODIUM CHLORIDE 0.9% 250 ML IV SCH (07:02)
[2020-10-22] MEDS: ENOXAPARIN 40 MG/0.4 ML SQ SCH ×2 (08:17→21:40)
[2020-10-22] MEDS: FLUTICASONE/VILANTEROL 100-25MCG/INH INH SCH (08:17)
[2020-10-22] MEDS: ZINC SULFATE 220 MG CAPSULE PO SCH (08:17)
[2020-10-22] MEDS: ASCORBIC ACID 500 MG TABLET PO SCH ×2 (08:18→21:39)
[2020-10-22 08:29] VITALS: BP 113/77
[2020-10-22] MEDS: DEXAMETHASONE 4 MG/ML, 1ML IVPush SCH (08:56)
[2020-10-22 20:12] VITALS: BP 127/90
[2020-10-23 00:45] VITALS: BP 113/68
[2020-10-23] MEDS: ACETAMINOPHEN 325 MG TABLET PO PRN (01:02)
[2020-10-23] MEDS: OXYcodone IR 5MG TABLET PO PRN (01:09)
[2020-10-23] MEDS ORDERED: VANCOMYCIN PMX 1GM/200ML 200 ML IV ONE (08:00)
[2020-10-23] MEDS ORDERED: VANCOMYCIN 2,500 MG in SODIUM CHLORIDE 0.9% 500 ML IV ONE (08:00)
[2020-10-23] MEDS ORDERED: PHARMACOKINETIC MONITORING MC PRN (08:00)
[2020-10-23] MEDS ORDERED: REMDESIVIR 100 MG IV SCH (08:00)
[2020-10-23] MEDS ORDERED: VANCOMYCIN PER PHARMACY MC PRN (08:00)
[2020-10-23] MEDS ORDERED: PHARMACOKINETIC CONSULTATION MC ONE (08:00)
[2020-10-23] MEDS: ZINC SULFATE 220 MG CAPSULE PO SCH (08:37)
[2020-10-23] MEDS: ASCORBIC ACID 500 MG TABLET PO SCH ×2 (08:37→20:02)
[2020-10-23] MEDS: DEXAMETHASONE 4 MG/ML, 1ML IVPush SCH (08:37)
[2020-10-23] MEDS: CEFTRIAXONE 1,000 MG in DEXTROSE 5% 50 ML IVPB SCH (08:57)
[2020-10-23] MEDS: FLUTICASONE/VILANTEROL 100-25MCG/INH INH SCH (09:02)
[2020-10-23] MEDS: ENOXAPARIN 60 MG/0.6 ML SQ SCH ×2 (09:02→20:03)
[2020-10-23 09:03] VITALS: BP 124/80
[2020-10-23 09:31] LABS: BASOPHILS % (AUTO) 0 % (0-1); EOSINOPHILS % (AUTO) 0 % (1-7); LYMPHOCYTES % (AUTO) 19 % (22-44); MEAN CORPUSCULAR HEMOGLOBIN 29.1 pg (27.5-34.5); MEAN PLATELET VOLUME 8.3 fL (7.4-10.4); MONOCYTES % (AUTO) 4 % (2-9); NEUTROPHILS % (AUTO) 76 % (42-75); PLATELET COUNT 233 x10^3/uL (130-400); RED BLOOD COUNT 5.42 x10^6/uL (4.38-5.82); RED CELL DISTRIBUTION WIDTH 14.3 % (9.4-14.8)
[2020-10-23 09:39] LABS: ALBUMIN 3.2 g/dL (3.4-5.0); ANION GAP 8 mmol/L (5-15); CALCIUM 8.8 mg/dL (8.5-10.1); CHLORIDE 96 mmol/L (98-107)
[2020-10-23 09:42] LABS: ALANINE AMINOTRANSFERASE 38 U/L (12-78); ALKALINE PHOSPHATASE 88 U/L (45-117); BILIRUBIN,TOTAL 0.4 mg/dL (0.2-1.0); CREATININE 1.14 mg/dL (0.7-1.3); D-DIMER (DIC) 0.62 ug/mlFEU (0.00-0.52); PROTIME 10.1 Seconds (9.6-11.5); TOTAL PROTEIN 7.7 g/dL (6.4-8.2)
[2020-10-23] MEDS: AZITHROMYCIN 500 MG in SODIUM CHLORIDE 0.9% 250 ML IV SCH (11:00)
[2020-10-23] MEDS ORDERED: REMDESIVIR 200 MG in SODIUM CHLORIDE 0.9% 250 ML IVPB ONE (12:00)
[2020-10-23 12:14] VITALS: BP 117/73
[2020-10-23 12:58] LABS: MICROSCOPIC AUTO
[2020-10-23] MEDS ORDERED: DIPHENHYDRAMINE 25 MG CAPSULE PO ONE (14:30)
[2020-10-23 19:34] VITALS: BP 147/84
[2020-10-24 01:35] VITALS: BP 122/80
[2020-10-24 06:27] LABS: BASOPHILS % (AUTO) 0 % (0-1); EOSINOPHILS % (AUTO) 0 % (1-7); LYMPHOCYTES % (AUTO) 13 % (22-44); MEAN CORPUSCULAR HEMOGLOBIN 29.2 pg (27.5-34.5); MEAN CORPUSCULAR HGB CONC 34.6 g/dL (33.2-36.2); MEAN PLATELET VOLUME 8.2 fL (7.4-10.4); MONOCYTES % (AUTO) 5 % (2-9); NEUTROPHILS % (AUTO) 82 % (42-75); PLATELET COUNT 227 x10^3/uL (130-400); RED BLOOD COUNT 5.05 x10^6/uL (4.38-5.82); RED CELL DISTRIBUTION WIDTH 14.3 % (9.4-14.8)
[2020-10-24 06:34] LABS: CALCIUM 8.3 mg/dL (8.5-10.1); CHLORIDE 95 mmol/L (98-107)
[2020-10-24 06:40] LABS: ALANINE AMINOTRANSFERASE 35 U/L (12-78); ALBUMIN 2.6 g/dL (3.4-5.0); ALKALINE PHOSPHATASE 70 U/L (45-117); ANION GAP 6 mmol/L (5-15); BILIRUBIN,TOTAL 0.4 mg/dL (0.2-1.0)
[2020-10-24 08:40] VITALS: BP 141/90
[2020-10-24] MEDS: DEXAMETHASONE 4 MG/ML, 1ML IVPush SCH (08:43)
[2020-10-24] MEDS: ZINC SULFATE 220 MG CAPSULE PO SCH (08:43)
[2020-10-24] MEDS: AZITHROMYCIN 500 MG in SODIUM CHLORIDE 0.9% 250 ML IV SCH (08:43)
[2020-10-24] MEDS: ASCORBIC ACID 500 MG TABLET PO SCH ×2 (08:43→20:32)
[2020-10-24] MEDS: FLUTICASONE/VILANTEROL 100-25MCG/INH INH SCH (08:44)
[2020-10-24] MEDS: ENOXAPARIN 60 MG/0.6 ML SQ SCH ×2 (08:44→20:33)
[2020-10-24] MEDS: CEFTRIAXONE 1,000 MG in DEXTROSE 5% 50 ML IVPB SCH (10:57)
[2020-10-24] MEDS: REMDESIVIR 100 MG in SODIUM CHLORIDE 0.9% 250 ML IVPB SCH (11:59)
[2020-10-24] MEDS ORDERED: ALBUTEROL HFA 90 MCG/SPRAY INH PRN (14:30)
[2020-10-24 16:18] VITALS: BP 132/80
[2020-10-24 16:55] VITALS: BP 123/81
[2020-10-24 19:28] VITALS: BP 138/84
[2020-10-25 00:50] VITALS: BP 132/87
[2020-10-25 06:47] LABS: ALBUMIN 2.5 g/dL (3.4-5.0); CALCIUM 8.7 mg/dL (8.5-10.1)
[2020-10-25 06:50] LABS: CREATININE 0.77 mg/dL (0.7-1.3)
[2020-10-25 06:51] LABS: ALANINE AMINOTRANSFERASE 38 U/L (12-78); ALKALINE PHOSPHATASE 69 U/L (45-117); BILIRUBIN,TOTAL 0.5 mg/dL (0.2-1.0); TOTAL PROTEIN 6.8 g/dL (6.4-8.2)
[2020-10-25 07:02] LABS: ANION GAP 7 mmol/L (5-15); CHLORIDE 102 mmol/L (98-107)
[2020-10-25 08:46] VITALS: BP 129/85
[2020-10-25] MEDS: AZITHROMYCIN 500 MG in SODIUM CHLORIDE 0.9% 250 ML IV SCH (08:53)
[2020-10-25] MEDS: DEXAMETHASONE 4 MG/ML, 1ML IVPush SCH (08:54)
[2020-10-25] MEDS: ZINC SULFATE 220 MG CAPSULE PO SCH (08:54)
[2020-10-25] MEDS: ENOXAPARIN 60 MG/0.6 ML SQ SCH ×2 (08:54→20:17)
[2020-10-25] MEDS: ASCORBIC ACID 500 MG TABLET PO SCH ×2 (08:54→20:17)
[2020-10-25] MEDS: FLUTICASONE/VILANTEROL 100-25MCG/INH INH SCH (10:18)
[2020-10-25] MEDS: CEFTRIAXONE 1,000 MG in DEXTROSE 5% 50 ML IVPB SCH (10:59)
[2020-10-25] MEDS: REMDESIVIR 100 MG in SODIUM CHLORIDE 0.9% 250 ML IVPB SCH (12:39)
[2020-10-25 12:42] VITALS: BP 131/91
[2020-10-25 18:17] VITALS: BP 134/85
[2020-10-25] MEDS: MELATONIN 5 MG TABLET PO PRN (20:16)
[2020-10-26 00:08] VITALS: BP 116/73
[2020-10-26 06:02] LABS: ALANINE AMINOTRANSFERASE 39 U/L (12-78); ALBUMIN 2.5 g/dL (3.4-5.0); ANION GAP 5 mmol/L (5-15); CALCIUM 8.7 mg/dL (8.5-10.1); CHLORIDE 101 mmol/L (98-107); CREATININE 0.77 mg/dL (0.7-1.3)
[2020-10-26 06:04] LABS: ALKALINE PHOSPHATASE 67 U/L (45-117); BILIRUBIN,TOTAL 0.3 mg/dL (0.2-1.0); TOTAL PROTEIN 6.5 g/dL (6.4-8.2)
[2020-10-26] MEDS: ASCORBIC ACID 500 MG TABLET PO SCH ×2 (08:58→20:49)
[2020-10-26] MEDS: ENOXAPARIN 60 MG/0.6 ML SQ SCH ×2 (08:58→20:49)
[2020-10-26] MEDS: DEXAMETHASONE 4 MG/ML, 1ML IVPush SCH (08:58)
[2020-10-26] MEDS: ZINC SULFATE 220 MG CAPSULE PO SCH (08:58)
[2020-10-26] MEDS: FLUTICASONE/VILANTEROL 100-25MCG/INH INH SCH (08:58)
[2020-10-26] MEDS: AZITHROMYCIN 500 MG in SODIUM CHLORIDE 0.9% 250 ML IV SCH (09:05)
[2020-10-26] MEDS: CEFTRIAXONE 1,000 MG in DEXTROSE 5% 50 ML IVPB SCH (12:05)
[2020-10-26] MEDS: REMDESIVIR 100 MG in SODIUM CHLORIDE 0.9% 250 ML IVPB SCH (13:55)
[2020-10-26 14:00] VITALS: BP 117/82
[2020-10-26 19:19] VITALS: BP 112/71
[2020-10-26] MEDS: MELATONIN 5 MG TABLET PO PRN (20:58)
[2020-10-27 00:08] VITALS: BP 137/92
[2020-10-27 06:47] LABS: ALBUMIN 2.6 g/dL (3.4-5.0); ANION GAP 6 mmol/L (5-15); CALCIUM 8.6 mg/dL (8.5-10.1); CHLORIDE 102 mmol/L (98-107)
[2020-10-27 06:50] LABS: ALANINE AMINOTRANSFERASE 37 U/L (12-78); ALKALINE PHOSPHATASE 71 U/L (45-117); BILIRUBIN,TOTAL 0.4 mg/dL (0.2-1.0); TOTAL PROTEIN 6.5 g/dL (6.4-8.2)
[2020-10-27] MEDS: ASCORBIC ACID 500 MG TABLET PO SCH ×2 (08:39→20:55)
[2020-10-27] MEDS: ZINC SULFATE 220 MG CAPSULE PO SCH (08:39)
[2020-10-27] MEDS: FLUTICASONE/VILANTEROL 100-25MCG/INH INH SCH (08:39)
[2020-10-27] MEDS: ENOXAPARIN 60 MG/0.6 ML SQ SCH ×2 (08:39→20:55)
[2020-10-27] MEDS: DEXAMETHASONE 4 MG/ML, 1ML IVPush SCH (08:39)
[2020-10-27 08:40] VITALS: BP 121/84
[2020-10-27] MEDS: AZITHROMYCIN 500 MG in SODIUM CHLORIDE 0.9% 250 ML IV SCH (08:46)
[2020-10-27] MEDS: CEFTRIAXONE 1,000 MG in DEXTROSE 5% 50 ML IVPB SCH (12:13)
[2020-10-27 13:13] VITALS: BP 105/68
[2020-10-27] MEDS: REMDESIVIR 100 MG in SODIUM CHLORIDE 0.9% 250 ML IVPB SCH (13:13)
[2020-10-27] MEDS: MELATONIN 5 MG TABLET PO PRN (20:55)
[2020-10-27 20:57] VITALS: BP 125/77
[2020-10-28 00:42] VITALS: BP 119/76
[2020-10-28 07:58] VITALS: BP 128/83
[2020-10-28] MEDS: ASCORBIC ACID 500 MG TABLET PO SCH (08:52)
[2020-10-28] MEDS: AZITHROMYCIN 500 MG in SODIUM CHLORIDE 0.9% 250 ML IV SCH (08:52)
[2020-10-28] MEDS: ENOXAPARIN 60 MG/0.6 ML SQ SCH (08:52)
[2020-10-28] MEDS: ZINC SULFATE 220 MG CAPSULE PO SCH (08:52)
[2020-10-28] MEDS: DEXAMETHASONE 4 MG/ML, 1ML IVPush SCH (08:52)
[2020-10-28] MEDS: FLUTICASONE/VILANTEROL 100-25MCG/INH INH SCH (08:52)
[2020-10-28] MEDS ORDERED: FLUT1AER INH (10:39)
[2020-10-28] MEDS ORDERED: ASCO500T9 PO (10:39)
[2020-10-28] MEDS ORDERED: ALBU18HF INH (10:39)
[2020-10-28] MEDS ORDERED: DEXA6TAB6 PO (10:39)
[2020-10-28] MEDS ORDERED: ZINC220C8 PO (10:39)
[2020-10-28] MEDS: CEFTRIAXONE 1,000 MG in DEXTROSE 5% 50 ML IVPB SCH (11:00)
[2020-10-28 12:07] VITALS: BP 124/87
== END 2020-10-28 16:44 | disposition home or self-care (01) | DRG 871 ==
LOC: ED 07:37 → EDIP 09:47 → 3N 12:03
PROVIDERS: ADMIT Internal Medicine; ATTEND Internal Medicine
PROC: XW033E5 Introduction of Remdesivir Anti-infective into Peripheral Vein, Percutaneous Approach, New Technology Group 5 (ICD-10-PCS; principal; 2020-10-23)
DX: A41.89 Other specified sepsis (principal); U07.1 COVID-19; J12.82 Pneumonia due to coronavirus disease 2019; J96.01 Acute respiratory failure with hypoxia; H66.91 Otitis media, unspecified, right ear; R53.83 Other fatigue
CPT/HCPCS: 36415; 71045; 80053; 80061; 81001; 82728; 83036; 83605; 83615; 83735; 84100; 84145; 84443; 85025; 85049; 85379; 85384; 85610; 85730; 86140; 87040; 93005; 96361; 96365; 96366; 96375; G0378; J0456; J0696; J1100; J1650; J1885; J2405; J3370; J7030; J7040; J7050; Q0163

== ENCOUNTER 2020-10-31 17:43 | Emergency (ER) | payer MEDICAID ==
[~2020-10-31] VITALS: Ht 180.3 cm; Wt 115.0 kg
[~2020-10-31 17:43] MED LIST changes: +ALBU18HF INH; +DEXA6TAB6 PO
--- NOTE | 2020-10-31 18:16 | NUR ---
PT PLACED ON ALL ROOM MONITORING. EKG ORDERED/COMPLETED BS. ED MEDIC IN TO START IV, DRAW LABS INCLUDING BC X 1. PT REPORTS WEAKNESS, DIFFICULTY WALKING, SOB. PT OBSERVED AMBULATING TO BR WITH OXYGEN AT 2LITERS. PT EXTREMELY SOB WITH THAT EXERTION, ASSISTED BACK TO ROOM AND WITH UNDRESSING INTO GOWN. CALL LIGHT WITHIN REACH. REVIEW OF CHART FROM [facility].
[2020-10-31 18:51] LABS: BASOPHILS % (AUTO) 0 % (0-1); EOSINOPHILS % (AUTO) 1 % (1-7); LYMPHOCYTES % (AUTO) 9 % (22-44); MEAN CORPUSCULAR HEMOGLOBIN 29.1 pg (27.5-34.5); MEAN CORPUSCULAR HGB CONC 34.1 g/dL (33.2-36.2); MEAN PLATELET VOLUME 7.6 fL (7.4-10.4); MONOCYTES % (AUTO) 5 % (2-9); NEUTROPHILS % (AUTO) 85 % (42-75); PLATELET COUNT 543 x10^3/uL (130-400); RED BLOOD COUNT 5.26 x10^6/uL (4.38-5.82); RED CELL DISTRIBUTION WIDTH 14.1 % (9.4-14.8)
[2020-10-31 18:56] LABS: ALANINE AMINOTRANSFERASE 96 U/L (12-78); ALBUMIN 2.9 g/dL (3.4-5.0); ANION GAP 10 mmol/L (5-15); CALCIUM 8.4 mg/dL (8.5-10.1); CHLORIDE 100 mmol/L (98-107); CREATININE 1.46 mg/dL (0.7-1.3)
[2020-10-31] MEDS ORDERED: KETOROLAC 30 MG/1 ML ONE (18:56)
[2020-10-31 19:00] LABS: ALKALINE PHOSPHATASE 98 U/L (45-117); BILIRUBIN,TOTAL 0.4 mg/dL (0.2-1.0); TOTAL PROTEIN 6.8 g/dL (6.4-8.2); TROPONIN I < 0.015 ng/mL (0.000-0.045)
[2020-10-31] MEDS ORDERED: KETOROLAC 30 MG/1 ML IVPush ONE (19:00)
[2020-10-31] MEDS ORDERED: SODIUM CHLORIDE 0.9% 1,000ML IVBOLUS ONE (19:00)
--- NOTE | 2020-10-31 19:03 | NUR ---
REPORT TO MARION, TRANSFER OF CARE AT THIS TIME.
--- NOTE | 2020-10-31 19:04 | NUR ---
RECIEVED REPORT FROM CAMERON CHASE. PT SITTIN ON SIDE OF BED FOR INCREAASED COMFORT. TOLERATED MEDS WELL.
--- NOTE | 2020-10-31 19:33 | NUR ---
FILLED OUT SEPSIS PINK SHEET. CONSULTED WITH ERMD ABOUT SHEET AND WAS INSTRUCTED NOT TO START SEPSIS PROTOCOL DUE TO MD EXPLANATION.
--- NOTE | 2020-10-31 19:35 | NUR ---
PINK SHEET IN PT CHARTS.
--- NOTE | 2020-10-31 20:03 | NUR ---
Patient is SLEEPING comfortably in bed. EYES CLOSED. SNORING VERY LOUD. Bed in lowest, rails engaged, call light on lap.Vital Signs within normal limits. WCTM. PT GIVEN ICE WATER EARLIER
[2020-10-31 20:50] VITALS: BP 138/68
--- NOTE | 2020-10-31 20:51 | NUR ---
Patient/Caregiver given discharge instructions and they have confirmed that they understand the instructions. Patient ambulatory with steady gait. NAD, all questions answered appropriately, denies additional needs at this time. No personal belongings left in room after discharge. PT REPORTS HAVING CONCENTRATOR AT HOME WHERE HE HAS BEEN ON 2L NC. MEDICALLY CLEARED BY FROY.
== END 2020-10-31 20:53 | disposition home or self-care (01) ==
LOC: ED 18:00
DX: U07.1 COVID-19 (principal); J18.9 Pneumonia, unspecified organism; R94.31 Abnormal electrocardiogram [ECG] [EKG]; I10 Essential (primary) hypertension
CPT/HCPCS: 36415; 71045; 80053; 83880; 84484; 85025; 93005; 96361; 96374; 99285; J1885; J7030

== ENCOUNTER 2020-11-04 17:02 | Emergency (ER) | payer MEDICAID ==
[~2020-11-04] VITALS: Ht 181.6 cm; Wt 131.1 kg
[2020-11-04 17:28] VITALS: BP 106/85
--- NOTE | 2020-11-04 19:27 | NUR ---
NIL X 1
--- NOTE | 2020-11-04 19:48 | NUR ---
NIL X 2
--- NOTE | 2020-11-04 20:13 | NUR ---
NIL X 3
== END 2020-11-04 20:16 | disposition left against medical advice (07) ==
LOC: ED 17:30
DX: Z76.0 Encounter for issue of repeat prescription (principal); I10 Essential (primary) hypertension
CPT/HCPCS: 99281; 99283

== ENCOUNTER 2020-11-07 18:06 | Emergency (ER) | payer MEDICAID ==
[~2020-11-07] VITALS: Ht 180.3 cm; Wt 131.0 kg
[2020-11-07] MEDS ORDERED: SODIUM CHLORIDE 0.9% 1,000ML IVBOLUS ONE (20:00)
[2020-11-07] MEDS ORDERED: METHOCARBAMOL 750 MG TABLET PO ONE (20:00)
[2020-11-07] MEDS ORDERED: KETOROLAC 15 MG/1ML IVPush ONE (20:00)
[2020-11-07] MEDS ORDERED: SODIUM CHLORIDE FLUSH 10ML SYR IVF ONE (20:00)
[2020-11-07] MEDS ORDERED: METHOCARBAMOL 750 MG TABLET ONE (20:05)
[2020-11-07] MEDS ORDERED: KETOROLAC 30 MG/1 ML ONE (20:05)
[2020-11-07 20:32] LABS: BASOPHILS % (AUTO) 0 % (0-1); EOSINOPHILS % (AUTO) 2 % (1-7); LYMPHOCYTES % (AUTO) 12 % (22-44); MEAN CORPUSCULAR HEMOGLOBIN 29.7 pg (27.5-34.5); MEAN CORPUSCULAR HGB CONC 34.4 g/dL (33.2-36.2); MEAN PLATELET VOLUME 7.8 fL (7.4-10.4); MONOCYTES % (AUTO) 11 % (2-9); NEUTROPHILS % (AUTO) 74 % (42-75); PLATELET COUNT 209 x10^3/uL (130-400); RED BLOOD COUNT 4.77 x10^6/uL (4.38-5.82); RED CELL DISTRIBUTION WIDTH 14.4 % (9.4-14.8)
[2020-11-07 20:37] LABS: ALANINE AMINOTRANSFERASE 64 U/L (12-78); ALBUMIN 2.5 g/dL (3.4-5.0); ANION GAP 5 mmol/L (5-15); CHLORIDE 102 mmol/L (98-107); CREATININE 1.07 mg/dL (0.7-1.3)
[2020-11-07 20:40] LABS: ALKALINE PHOSPHATASE 77 U/L (45-117); BILIRUBIN,TOTAL 0.3 mg/dL (0.2-1.0); TOTAL PROTEIN 6.2 g/dL (6.4-8.2)
[2020-11-07] MEDS ORDERED: GADOTERATE 10 MMOL/20ML SYR ONE (20:56)
[2020-11-07] MEDS ORDERED: GADOTERATE 7.5 MMOL/15ML SYR ONE (20:57)
[2020-11-08 01:09] VITALS: BP 138/70
== END 2020-11-08 01:14 | disposition home or self-care (01) ==
LOC: ED 19:54
DX: S39.012A Strain of muscle, fascia and tendon of lower back, initial encounter (principal); M51.36 Other intervertebral disc degeneration, lumbar region; I10 Essential (primary) hypertension; E66.9 Obesity, unspecified; Z68.41 Body mass index [BMI] 40.0-44.9, adult; X58.XXXA Exposure to other specified factors, initial encounter; Y93.89 Activity, other specified; Y92.89 Other specified places as the place of occurrence of the external cause; Y99.8 Other external cause status
CPT/HCPCS: 36415; 71045; 72158; 80053; 85025; 96361; 96374; 99285; A9575; J1885; J7030; J7512